=== PATIENT | female | born 1960 | race Caucasian/White ===

== ENCOUNTER 2018-08-31 19:23 | Inpatient (IN) | payer BC, MEDICAID ==
[~2018-08-31] VITALS: Ht 172.7 cm; Wt 126.4 kg
[~2018-08-31 19:23] MED LIST: ONDA4TAB12 PO
[2018-08-31 20:13] LABS: ALANINE AMINOTRANSFERASE 28 U/L (12-78); ALBUMIN 3.2 G/DL (3.4-5.0); ALBUMIN/GLOBULIN RATIO 0.7 (1.1-1.5); ALKALINE PHOSPHATASE 99 IU/L (46-116); ANION GAP 9 (8-16); ASPARTATE AMINO TRANSFERASE 24 U/L (10-37); BILIRUBIN,TOTAL 0.2 MG/DL (0.1-1.0); BLOOD UREA NITROGEN 25 MG/DL (7-18); BUN/CREATININE RATIO 16.8 (6.6-38.0); CALCIUM 9.1 MG/DL (8.5-10.1); CHLORIDE 105 MMOL/L (99-107); CREATININE 1.49 MG/DL (0.40-0.90); GLUCOSE 100 MG/DL (70-104); POTASSIUM 4.1 MMOL/L (3.5-5.1); SODIUM 141 MMOL/L (135-145); TOTAL CARBON DIOXIDE 27.2 MMOL/L (24-32); TOTAL PROTEIN 7.6 G/DL (6.4-8.2); eGFR 36 ML/MIN
[2018-08-31 20:15] LABS: BASOPHILS # (AUTO) 0.1 X10'3 (0-0.2); BASOPHILS % (AUTO) 0.6 % (0-1); EOSINOPHILS # (AUTO) 0.4 X10'3 (0-0.9); EOSINOPHILS % (AUTO) 3.3 % (0-6); LYMPHOCYTES # (AUTO) 2.3 X10'3 (1.1-4.8); LYMPHOCYTES % (AUTO) 19.8 % (21-51); MONOCYTES # (AUTO) 0.8 X10'3 (0-0.9); MONOCYTES % (AUTO) 6.7 % (2-12); NEUTROPHILS % (AUTO) 69.6 % (42-75)
[2018-08-31 20:19] LABS: MAGNESIUM 1.9 MG/DL (1.5-2.4)
[2018-08-31] MEDS ORDERED: nitroGLYCERIN 0.4mg SUBLingual tab SL PRN (20:25)
--- NOTE | 2018-08-31 20:29 | NUR ---
ASSISTING RN WITH PT CARE, PT C/O MIDSTERNAL CHEST "PRESSURE" 12/30 AND CHEST "SQUEEZING" 04/01, RADIATES TO LEFT SHOULDER, GAVE 1ST NITRO, DR CARPENTER SAID PT COULD HAVE SOMETHING TO DRINK, PT LENARD WATER WELL, NO N/V
--- NOTE | 2018-08-31 20:34 | NUR ---
PT HAS NO CHEST PAIN/PRESSURE/SQUEEZING AFTER ONE NITRO
[2018-08-31 20:43] LABS: HEMATOCRIT 45.6 % (35.0-45.0); HEMOGLOBIN 14.8 g/dl (12.0-16.0); MEAN CORPUSCULAR HEMOGLOBIN 26.9 PG (27.0-31.0); MEAN CORPUSCULAR VOLUME 82.9 FL (78-98); RED BLOOD COUNT 5.49 X10'6 (4.20-5.60)
[2018-08-31 20:44] LABS: MEAN CORPUSCULAR HGB CONC 32.4 % (33.0-36.5); MEAN PLATELET VOLUME 8.2 FL (7.4-10.4); PLATELET COUNT 339 X10'3 (140-440); RED CELL DISTRIBUTION WIDTH 14.5 % (11.5-14.5)
[2018-08-31] MEDS ORDERED: GABA300C PO (21:03)
[2018-08-31] MEDS ORDERED: PRAM0.253 PO (21:03)
[2018-08-31] MEDS ORDERED: NEFA200T PO (21:03)
[2018-08-31] MEDS ORDERED: OXCA300T4 PO (21:03)
[2018-08-31] MEDS ORDERED: TOPI200T PO (21:03)
[2018-08-31] MEDS ORDERED: BRIV100T PO (21:03)
[2018-08-31] MEDS ORDERED: FLUT100D2 INH (21:03)
[2018-08-31] MEDS ORDERED: LORA1TAB PO (21:03)
[2018-08-31] MEDS ORDERED: LEVO125T PO (21:03)
[2018-08-31] MEDS ORDERED: DULO-31 PO (21:03)
[2018-08-31] MEDS ORDERED: TIZA4TAB11 PO (21:03)
[2018-08-31] MEDS ORDERED: ondansetron/PF 4mg/2ml inj IV ONE (22:10)
[2018-08-31] MEDS ORDERED: mag hydrox/Alum hydrox/simeth 30ml oral suspension PO PRN (23:05)
[2018-08-31] MEDS ORDERED: tizanidine 4mg tablet PO PRN (23:05)
[2018-08-31] MEDS ORDERED: magnesium hydroxide 30ml (MOM) UD suspension PO PRN (23:05)
[2018-08-31] MEDS ORDERED: acetaminophen 325mg tablet PO PRN (23:05)
[2018-08-31] MEDS ORDERED: ondansetron/PF 4mg/2ml inj IV PRN (23:05)
[2018-08-31 23:45] LABS: D-DIMER 1.36 MG/L FEU (0-0.50)
[2018-09-01] VITALS (8 sets, daily range): BP systolic 98–130; BP diastolic 35–69
--- NOTE | 2018-09-01 03:00 | NUR ---
Patient arrived on floor via hospital bed from ED after receiving report from Brigido TOMPKINS. Patient placed on lost charge card clerk, vitals taken, and oriented to room. No complaint of chest pain at this time. Patients belongings accompanied, continuing to monitor.
--- NOTE | 2018-09-01 06:30 | NUR ---
Patient in room PCU 3028. I have received report from LEDA Gilbert and had the opportunity to ask questions and assume patient care.
--- NOTE | 2018-09-01 07:01 | NUR ---
Problems reprioritized. Patient report given, questions answered & plan of care reviewed with Jose Luis TOMPKINS.
[2018-09-01 07:28] LABS: BASOPHILS # (AUTO) 0.1 X10'3 (0-0.2); BASOPHILS % (AUTO) 0.6 % (0-1); EOSINOPHILS # (AUTO) 0.4 X10'3 (0-0.9); EOSINOPHILS % (AUTO) 4.3 % (0-6); HEMATOCRIT 40.1 % (35.0-45.0); HEMOGLOBIN 12.8 g/dl (12.0-16.0); LYMPHOCYTES % (AUTO) 22.6 % (21-51); MEAN CORPUSCULAR HEMOGLOBIN 26.4 PG (27.0-31.0); MEAN CORPUSCULAR VOLUME 82.4 FL (78-98); MEAN PLATELET VOLUME 8.7 FL (7.4-10.4); MONOCYTES # (AUTO) 0.7 X10'3 (0-0.9); NEUTROPHILS # (AUTO) 5.8 X10'3 (1.8-7.7); NEUTROPHILS % (AUTO) 64.5 % (42-75); PLATELET COUNT 297 X10'3 (140-440); RED BLOOD COUNT 4.87 X10'6 (4.20-5.60); RED CELL DISTRIBUTION WIDTH 14.6 % (11.5-14.5)
[2018-09-01 07:52] LABS: ALANINE AMINOTRANSFERASE 25 U/L (12-78); ALBUMIN 2.7 G/DL (3.4-5.0); ALBUMIN/GLOBULIN RATIO 0.7 (1.1-1.5); ALKALINE PHOSPHATASE 89 IU/L (46-116); ANION GAP 10 (8-16); ASPARTATE AMINO TRANSFERASE 16 U/L (10-37); BILIRUBIN,TOTAL 0.2 MG/DL (0.1-1.0); BLOOD UREA NITROGEN 27 MG/DL (7-18); BUN/CREATININE RATIO 21.4 (6.6-38.0); CALCIUM 8.7 MG/DL (8.5-10.1); CHLORIDE 107 MMOL/L (99-107); CREATININE 1.26 MG/DL (0.40-0.90); GLUCOSE 99 MG/DL (70-104); POTASSIUM 4.2 MMOL/L (3.5-5.1); SODIUM 142 MMOL/L (135-145); TOTAL CARBON DIOXIDE 25.5 MMOL/L (24-32); TOTAL PROTEIN 6.7 G/DL (6.4-8.2); eGFR 44 ML/MIN
[2018-09-01] MEDS ORDERED: TYPE IN GENERIC & BRAND NAME OF PATIENT MED STRENGTH & FORM PO SCH (08:00)
[2018-09-01] MEDS: levoTHYROXINE 125mcg tablet PO SCH (08:41)
[2018-09-01] MEDS: topiramate 100mg tablet PO SCH ×2 (08:41→20:07)
[2018-09-01] MEDS: oxcarbazepine 150mg tablet PO SCH ×3 (08:42→20:07)
[2018-09-01] MEDS: duloxetine 30mg CAPSULE.DR PO SCH (08:42)
[2018-09-01] MEDS: heparin, porcine 5000 units/ml vial SQ SCH ×2 (08:42→20:06)
[2018-09-01] MEDS ORDERED: nitroGLYCERIN 0.4mg SUBLingual tab SL PRN (08:45)
[2018-09-01] MEDS ORDERED: metoprolol tartrate 1mg/ml inj IV PRN (08:45)
[2018-09-01] MEDS ORDERED: regadenoson 0.4mg/5ml syringe IV ONE (08:45)
[2018-09-01] MEDS ORDERED: aminophylline 250mg/10ml inj. IV PRN (08:45)
--- NOTE | 2018-09-01 08:45 | NUR ---
cannot give pts at home medications pt advised to bring them in, one is for pts staring seizures, pts bed rails padded and education given
[2018-09-01] MEDS: aspirin 81mg tablet.DR PO SCH (08:50)
[2018-09-01] MEDS: BUDESONIDE 0.25 MG/2 ML AMPUL.NEB IH SCH ×2 (09:00→19:36)
[2018-09-01] MEDS ORDERED: NEFAZODONE HCL PO SCH (12:00)
[2018-09-01 12:49] LABS: CHOL/HDL RATIO 2.4 (0.00-4.99); CHOLESTEROL 193 MG/DL (0-200); HDL CHOLESTEROL 79 MG/DL (35-60); LDL CHOLESTEROL 97 MG/DL (50-100); TRIGLYCERIDES 60 MG/DL (20-135)
--- NOTE | 2018-09-01 18:03 | NUR ---
Problems reprioritized. Patient report given, questions answered & plan of care reviewed with LEDA Chisholm.
--- NOTE | 2018-09-01 18:11 | NUR ---
Patient in room PCU 3028. I have received report from Jose Luis TOMPKINS and had the opportunity to ask questions and assume patient care.
[2018-09-01] MEDS: metoprolol tartrate 12.5mg (1/2 tablet) PO SCH (20:00)
[2018-09-01] MEDS: pramipexole 0.25mg tablet PO SCH (20:06)
[2018-09-01] MEDS: gabapentin 300mg capsule PO SCH (20:07)
--- NOTE | 2018-09-01 20:24 | NUR ---
pt complaints of CP of 6, 12 lead completed and verified with MD. VS: Temperature 97.9, HR 78, RR 20, O2 91%, BP 98/35. pt has complained of severe cough. Nitro not given due to BP being 98/35. Will continue to monitor.
[2018-09-02] VITALS (18 sets, daily range): BP systolic 87–137; BP diastolic 47–86
[2018-09-02] MEDS: LORazepam 2 mg/ml vial IV PRN ×3 (00:26→09:53)
--- NOTE | 2018-09-02 00:29 | NUR ---
pt went into petite mal seizure activity at 0018 and went into grand mal at 0022. assisted pt to bed attended by aid and extension service specialist in charge. No interruption of breathing. pt given IV ativan. seizure ended at 0030. pt foggy but able to stand after.
[2018-09-02 05:11] LABS: BASOPHILS % (AUTO) 0.6 % (0-1); EOSINOPHILS # (AUTO) 0.4 X10'3 (0-0.9); EOSINOPHILS % (AUTO) 4.8 % (0-6); HEMATOCRIT 41.3 % (35.0-45.0); LYMPHOCYTES # (AUTO) 1.8 X10'3 (1.1-4.8); MEAN CORPUSCULAR HGB CONC 31.6 % (33.0-36.5); MEAN CORPUSCULAR VOLUME 82.4 FL (78-98); MEAN PLATELET VOLUME 8.9 FL (7.4-10.4); MONOCYTES # (AUTO) 0.7 X10'3 (0-0.9); MONOCYTES % (AUTO) 8.8 % (2-12); NEUTROPHILS # (AUTO) 4.7 X10'3 (1.8-7.7); NEUTROPHILS % (AUTO) 61.8 % (42-75); PLATELET COUNT 286 X10'3 (140-440); RED CELL DISTRIBUTION WIDTH 14.9 % (11.5-14.5); WHITE BLOOD COUNT 7.6 X10'3 (4.5-11.0)
[2018-09-02 05:30] LABS: ALANINE AMINOTRANSFERASE 23 U/L (12-78); ALBUMIN 2.8 G/DL (3.4-5.0); ALBUMIN/GLOBULIN RATIO 0.7 (1.1-1.5); ALKALINE PHOSPHATASE 86 IU/L (46-116); ANION GAP 7 (8-16); ASPARTATE AMINO TRANSFERASE 17 U/L (10-37); BILIRUBIN,TOTAL 0.2 MG/DL (0.1-1.0); BLOOD UREA NITROGEN 22 MG/DL (7-18); BUN/CREATININE RATIO 21.4 (6.6-38.0); CALCIUM 8.8 MG/DL (8.5-10.1); CHLORIDE 107 MMOL/L (99-107); CREATININE 1.03 MG/DL (0.40-0.90); GLUCOSE 106 MG/DL (70-104); POTASSIUM 4.2 MMOL/L (3.5-5.1); SODIUM 141 MMOL/L (135-145); TOTAL CARBON DIOXIDE 26.9 MMOL/L (24-32); TOTAL PROTEIN 6.8 G/DL (6.4-8.2); eGFR 55 ML/MIN
--- NOTE | 2018-09-02 06:15 | NUR ---
Patient in room [facility] 3028. I have received report from Lissette TOMPKINS and had the opportunity to ask questions and assume patient care. Addendum: 09/02/18 at 0653 by Iza Sims RN CORRECTION: Patient in room [place] [id number]. I have received report from DELIA TOMPKINS and had the opportunity to ask questions and assume patient care.
--- NOTE | 2018-09-02 06:24 | NUR ---
Problems reprioritized. Patient report given, questions answered & plan of care reviewed with Heather TOMPKINS.
[2018-09-02] MEDS: BUDESONIDE 0.25 MG/2 ML AMPUL.NEB IH SCH ×2 (07:33→19:33)
[2018-09-02] MEDS ORDERED: LORazepam 2 mg/ml vial IM ONE (08:30)
[2018-09-02] MEDS ORDERED: aminophylline inj. 10 ML IV ONE (08:41)
[2018-09-02] MEDS ORDERED: regadenoson 0.4mg/5ml syringe IV ONE (08:41)
--- NOTE | 2018-09-02 09:45 | NUR ---
Received call to come [place] [facility]. Arrived at this time to see patient surrounded by team of staff. Rapid response had been called. Prepared to give oral antiepileptic meds and patient went into a seizure again, this nurse witnessed 2-3 seizures, Nepo called to come. RN at side had already administerd 2 mg. Sri ICU charge arrived at bedside and plans were discussed to send her to room 2007.
--- NOTE | 2018-09-02 10:00 | NUR ---
Transferred to ICU at this time.
--- NOTE | 2018-09-02 10:05 | NUR ---
RECEIVED PATIENT FROM [facility], VIA HOSPITAL BED. PATIENT WAS HAVING MULTIPLE SEIZURES IN [facility], REQUIRING ADMINISTRATION OF ATIVAN. AT PRESENT, PATIENT IS EASILY AROUSABLE AND APPROPRIATE. 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 PLACED ON MONITOR, DISPLAYING NSR WITH HR 84/MIN. O2 SATS 99-100%. CALL LIGHT IN REACH. REPORT RECEIVED FROM LEDA DAVILA.
--- NOTE | 2018-09-02 10:10 | NUR ---
Gave report to Hanna TOMPKINS. Made RN aware of multiple grand mal seizures while in nuc med exacerbated by nuclear medication for stress test. 3 mg Ativan administered by nurses during rapid response. Patient sitting up in bed making a phone call at this time. Assessment WNL.
--- NOTE | 2018-09-02 10:10 | NUR ---
approx. 0943 pt had 2nd seizure in nuc med lab, 1st seizure occurred during lexiscan approx 0907 which stopped at 0911 (petite seizure and then gran mal) see stress test noted for vitals. pt was then doing well recovering and drinking coffee, pt was then about to move and transfer to camera bed when nuc med tech saw her seizing then patients head slump downward, vt vinnie called for help, Karina TOMPKINS, Louisa TOMPKINS, Vamsi Chong and Jacque Resendez responded. Rapid Response initiated, a dose of Ativan 1mg was given, and then a 2nd dose was given for more seizure activity, aminophylline 75mg was given. Rapid Response team arrived, pt had seizures starting from approximately 0944 until 0953, patient was then transferred to cicu. approx.@0943 gran mal witnessed by kush birmingham, pt was then able to alert and spoke with kush birmingham and RN approx.@0947 petite mal witness by stress lab team approx.@0950 gran mal witnessed by Rapid Response team
[2018-09-02] MEDS: aspirin 81mg tablet.DR PO SCH (10:44)
[2018-09-02] MEDS: heparin, porcine 5000 units/ml vial SQ SCH ×2 (10:45→20:30)
[2018-09-02] MEDS: levoTHYROXINE 125mcg tablet PO SCH (10:46)
[2018-09-02] MEDS: oxcarbazepine 150mg tablet PO SCH ×3 (10:46→21:05)
[2018-09-02] MEDS: duloxetine 30mg CAPSULE.DR PO SCH (10:47)
[2018-09-02] MEDS: topiramate 100mg tablet PO SCH ×2 (10:49→20:28)
[2018-09-02] MEDS: metoprolol tartrate 12.5mg (1/2 tablet) PO SCH ×2 (10:51→20:34)
--- NOTE | 2018-09-02 11:20 | NUR ---
PATIENT STATES SHE WOULD LIKE TO SPEAK WITH HER MOTHER BUT IS UNABLE TO DIAL FROM THE PATIENT ROOM. TELEPHONE CALL TO MOTHER, LUCIUS, AND TRANSFERRED CALL TO ROOM, SO PATIENT CAN SPEAK WITH HER MOTHER. ALERT AND APPROPRIATE AT THIS TIME. PATIENT ATE BREAKFAST 100% AND RETAINED. NO SEIZURE ACTIVITY NOTED AT THIS TIME.
--- NOTE | 2018-09-02 11:35 | NUR ---
Received report from Hanna TOMPKINS in ICU, patient returning to room 3028 A. Has been seizure free since transferred to ICU. Waiting on patient arrival.
--- NOTE | 2018-09-02 12:37 | NUR ---
Called Daughter Reji spoke with her regarding bringing in med from home not supplied by hospital " States she will call her grandmother" for she is out of town right now Progress reprot given
--- NOTE | 2018-09-02 13:16 | NUR ---
AWAKE AND ALERT. ATE 100% OF LUNCH AND RETAINED. PREPARING FOR TRANSFER BACK TO PCU. PORTABLE TELE UNIT APPLIED AND FN WELL.
--- NOTE | 2018-09-02 13:38 | NUR ---
Patient arrived to 3028A from ICU, will cont. to monitor. Dr. Chandler at bedside, he's going to order some medication for her cough.
--- NOTE | 2018-09-02 18:44 | NUR ---
Problems reprioritized. Patient report given, questions answered & plan of care reviewed with Autumn TOMPKINS.
[2018-09-02] MEDS ORDERED: ketorolac trometh. 30mg/ml inj. IM PRN (18:45)
[2018-09-02] MEDS ORDERED: azithromycin 250mg tablet PO ONE (18:55)
--- NOTE | 2018-09-02 18:59 | NUR ---
Patient in room PCU 3028. I have received report from Iza TOMPKINS and had the opportunity to ask questions and assume patient care.
[2018-09-02] MEDS: pramipexole 0.25mg tablet PO SCH (20:28)
[2018-09-02] MEDS: gabapentin 300mg capsule PO SCH (20:29)
[2018-09-02] MEDS: CefTRIAXone/D5W-Rocephin 1gm 50 ML IV SCH (20:31)
[2018-09-02] MEDS ORDERED: oxcarbazepine 150mg tablet PO SCH (21:00)
[2018-09-03 02:00] VITALS: BP 139/66
[2018-09-03 06:30] VITALS: BP 141/70
[2018-09-03] MEDS: LORazepam 2 mg/ml vial IV PRN ×4 (06:34→20:57)
--- NOTE | 2018-09-03 06:47 | NUR ---
Problems reprioritized. Patient report given, questions answered & plan of care reviewed with Khadijah TOMPKINS.
--- NOTE | 2018-09-03 07:03 | NUR ---
Patient in room PCU 3028. I have received report from Va TOMPKINS. and had the opportunity to ask questions and assume patient care. During report, the aid came up and stated the patient was having a seizure when they got her up to the restroom, we went in there and she was just laying there, barely shaking, gave ativan per md orders, patient soon was able to talk normally again, and move herself up in bed. MD is aware of constant seizures, will continue to monitor patient, told the patient she is only to get up with assist, as these happen when she is getting up. Patient states she understands, bed alarm on as well.
--- NOTE | 2018-09-03 08:00 | NUR ---
Went to check on patients pain level as she was previously a 03/01, patient is sleeping, will check on her later and ask if her pain is better, she was given ativan with her seizures, vitals stable.
[2018-09-03 08:31] LABS: BASOPHILS % (AUTO) 0.5 % (0-1); EOSINOPHILS # (AUTO) 0.4 X10'3 (0-0.9); EOSINOPHILS % (AUTO) 4.5 % (0-6); HEMOGLOBIN 14.1 g/dl (12.0-16.0); LYMPHOCYTES # (AUTO) 1.8 X10'3 (1.1-4.8); LYMPHOCYTES % (AUTO) 21.2 % (21-51); MEAN CORPUSCULAR HGB CONC 31.4 % (33.0-36.5); MEAN CORPUSCULAR VOLUME 82.7 FL (78-98); MEAN PLATELET VOLUME 8.8 FL (7.4-10.4); MONOCYTES # (AUTO) 0.5 X10'3 (0-0.9); MONOCYTES % (AUTO) 5.9 % (2-12); NEUTROPHILS # (AUTO) 5.6 X10'3 (1.8-7.7); NEUTROPHILS % (AUTO) 67.9 % (42-75); PLATELET COUNT 294 X10'3 (140-440); RED BLOOD COUNT 5.44 X10'6 (4.20-5.60); RED CELL DISTRIBUTION WIDTH 14.5 % (11.5-14.5); WHITE BLOOD COUNT 8.3 X10'3 (4.5-11.0)
[2018-09-03 08:47] LABS: ALANINE AMINOTRANSFERASE 24 U/L (12-78); ALBUMIN 3.1 G/DL (3.4-5.0); ALBUMIN/GLOBULIN RATIO 0.7 (1.1-1.5); ALKALINE PHOSPHATASE 98 IU/L (46-116); ANION GAP 9 (8-16); ASPARTATE AMINO TRANSFERASE 19 U/L (10-37); BILIRUBIN,TOTAL 0.2 MG/DL (0.1-1.0); BLOOD UREA NITROGEN 21 MG/DL (7-18); BUN/CREATININE RATIO 18.6 (6.6-38.0); CALCIUM 9.1 MG/DL (8.5-10.1); CHLORIDE 102 MMOL/L (99-107); CREATININE 1.13 MG/DL (0.40-0.90); GLUCOSE 126 MG/DL (70-104); POTASSIUM 4.1 MMOL/L (3.5-5.1); SODIUM 137 MMOL/L (135-145); TOTAL CARBON DIOXIDE 25.7 MMOL/L (24-32); TOTAL PROTEIN 7.7 G/DL (6.4-8.2); eGFR 50 ML/MIN
[2018-09-03] MEDS: BUDESONIDE 0.25 MG/2 ML AMPUL.NEB IH SCH ×2 (09:03→20:45)
[2018-09-03] MEDS: CefTRIAXone/D5W-Rocephin 1gm 50 ML IV SCH (09:22)
[2018-09-03] MEDS: heparin, porcine 5000 units/ml vial SQ SCH ×2 (09:25→20:00)
[2018-09-03] MEDS: oxcarbazepine 150mg tablet PO SCH ×5 (09:26→21:03)
[2018-09-03] MEDS: levoTHYROXINE 125mcg tablet PO SCH (09:26)
[2018-09-03] MEDS: aspirin 81mg tablet.DR PO SCH (09:26)
[2018-09-03] MEDS: topiramate 100mg tablet PO SCH ×2 (09:27→20:58)
[2018-09-03] MEDS: azithromycin 250mg tablet PO SCH (09:27)
[2018-09-03] MEDS: metoprolol tartrate 12.5mg (1/2 tablet) PO SCH ×2 (09:28→21:00)
[2018-09-03] MEDS: duloxetine 30mg CAPSULE.DR PO SCH (09:29)
--- NOTE | 2018-09-03 09:48 | NUR ---
Pt had another seizure after medications were administered. Pt rolled to side, seizure pads already in place, 2mg ativan given x2 doses, seizure resolved after 12 mins, vital signs stable at: BP 117/73, HR 85, O2 sat 91%, RR, 14.
[2018-09-03 11:00] VITALS: BP 147/85
--- NOTE | 2018-09-03 11:20 | NUR ---
Talked to Dr. Chandler about patients seizures, he stated to add 150mg trileptal tid. verbal order verified. Told him pharmacist thought it was a duplicate order this am and stopped the 150 order. will administer 450mg per md orders starting at 1300.
--- NOTE | 2018-09-03 12:46 | NUR ---
Got a message that patients mom had called and wanted a call back, the patient stated her mom has alzheimers and doesnt remember anything anyways, so that she would update her mother.
--- NOTE | 2018-09-03 14:40 | NUR ---
Problems reprioritized. Patient report given, questions answered & plan of care reviewed with Mayra TOMPKINS.
[2018-09-03 15:00] VITALS: BP 118/72
--- NOTE | 2018-09-03 15:51 | NUR ---
Paged Dr. Chandler PAGER ID: [phone] MESSAGE: Re: Pt. Saab in rm [id number], she confirmed that she does take serzone at home.
--- NOTE | 2018-09-03 16:48 | NUR ---
Pt was taken down for CT, when she returned at 1640 she was still having a seizure. Siezure resolved after Pt was transferred back to bed and is now resting in bed.
--- NOTE | 2018-09-03 18:15 | NUR ---
Patient in room PCU 3028A. I have received report from Shirley TOMPKINS and had the opportunity to ask questions and assume patient care.
[2018-09-03 19:00] VITALS: BP 130/83
[2018-09-03] MEDS: pramipexole 0.25mg tablet PO SCH (20:59)
[2018-09-03] MEDS: gabapentin 300mg capsule PO SCH (20:59)
--- NOTE | 2018-09-03 21:00 | NUR ---
Patient observed having apparent absence seizure activity, ativan given 2mg IV at this time, activity lasted aprox 4 min. Mildly confused post seizure, AOx4 within minutes, very lethargic and tired.
[2018-09-03 23:00] VITALS: BP 126/64
[2018-09-04 03:00] VITALS: BP 118/68
[2018-09-04] MEDS: LORazepam 2 mg/ml vial IV PRN ×2 (04:44→16:12)
--- NOTE | 2018-09-04 04:55 | NUR ---
Patient observed having apparent absence seizure activity, ativan given 2mg IV at this time, activity lasted aprox 5min. Mildly confused post seizure, AOx4 within minutes, very lethargic and tired.
[2018-09-04 06:00] VITALS: BP 131/72
--- NOTE | 2018-09-04 06:25 | NUR ---
Problems reprioritized. Patient report given, questions answered & plan of care reviewed with Phill TOMPKINS.
--- NOTE | 2018-09-04 06:35 | NUR ---
Patient in room PCU 3028. I have received report from Matt TOMPKINS and had the opportunity to ask questions and assume patient care. Will continue to monitor.
[2018-09-04 07:04] LABS: BASOPHILS # (AUTO) 0.1 X10'3 (0-0.2); BASOPHILS % (AUTO) 0.8 % (0-1); EOSINOPHILS # (AUTO) 0.5 X10'3 (0-0.9); EOSINOPHILS % (AUTO) 5.2 % (0-6); HEMATOCRIT 45.2 % (35.0-45.0); LYMPHOCYTES # (AUTO) 1.9 X10'3 (1.1-4.8); LYMPHOCYTES % (AUTO) 21.3 % (21-51); MEAN CORPUSCULAR HEMOGLOBIN 25.8 PG (27.0-31.0); MEAN CORPUSCULAR VOLUME 83.1 FL (78-98); MEAN PLATELET VOLUME 9.1 FL (7.4-10.4); MONOCYTES # (AUTO) 0.7 X10'3 (0-0.9); MONOCYTES % (AUTO) 8.3 % (2-12); NEUTROPHILS # (AUTO) 5.8 X10'3 (1.8-7.7); NEUTROPHILS % (AUTO) 64.4 % (42-75); PLATELET COUNT 282 X10'3 (140-440); RED BLOOD COUNT 5.44 X10'6 (4.20-5.60); RED CELL DISTRIBUTION WIDTH 14.7 % (11.5-14.5)
[2018-09-04 07:16] LABS: ALANINE AMINOTRANSFERASE 22 U/L (12-78); ALBUMIN/GLOBULIN RATIO 0.7 (1.1-1.5); ALKALINE PHOSPHATASE 98 IU/L (46-116); ANION GAP 10 (8-16); ASPARTATE AMINO TRANSFERASE 15 U/L (10-37); BILIRUBIN,TOTAL 0.2 MG/DL (0.1-1.0); BLOOD UREA NITROGEN 24 MG/DL (7-18); BUN/CREATININE RATIO 23.5 (6.6-38.0); CALCIUM 9.3 MG/DL (8.5-10.1); CHLORIDE 102 MMOL/L (99-107); CREATININE 1.02 MG/DL (0.40-0.90); GLUCOSE 98 MG/DL (70-104); POTASSIUM 3.9 MMOL/L (3.5-5.1); SODIUM 139 MMOL/L (135-145); TOTAL CARBON DIOXIDE 26.7 MMOL/L (24-32); TOTAL PROTEIN 7.6 G/DL (6.4-8.2); eGFR 56 ML/MIN
[2018-09-04] MEDS: CefTRIAXone/D5W-Rocephin 1gm 50 ML IV SCH (08:10)
[2018-09-04] MEDS: oxcarbazepine 150mg tablet PO SCH ×4 (08:11→21:25)
[2018-09-04] MEDS: duloxetine 30mg CAPSULE.DR PO SCH (08:11)
[2018-09-04] MEDS: aspirin 81mg tablet.DR PO SCH (08:11)
[2018-09-04] MEDS: heparin, porcine 5000 units/ml vial SQ SCH ×2 (08:11→20:06)
[2018-09-04] MEDS: topiramate 100mg tablet PO SCH ×2 (08:11→20:07)
[2018-09-04] MEDS: azithromycin 250mg tablet PO SCH (08:12)
[2018-09-04] MEDS: metoprolol tartrate 12.5mg (1/2 tablet) PO SCH ×2 (08:12→20:07)
[2018-09-04] MEDS: levoTHYROXINE 125mcg tablet PO SCH (08:12)
[2018-09-04] MEDS: BUDESONIDE 0.25 MG/2 ML AMPUL.NEB IH SCH ×2 (10:38→21:33)
[2018-09-04 11:00] VITALS: BP 144/79
[2018-09-04 15:00] VITALS: BP 130/68
--- NOTE | 2018-09-04 16:16 | NUR ---
Pt had seizure and was given 1 dose of prn Ativan, seizure resolved. Pt in bed and resting at this time.
[2018-09-04 18:00] VITALS: BP 134/78
[2018-09-04] MEDS: pramipexole 0.25mg tablet PO SCH (21:24)
[2018-09-04] MEDS: gabapentin 300mg capsule PO SCH (21:25)
[2018-09-04 22:00] VITALS: BP 134/78
[2018-09-05 02:00] VITALS: BP 126/83
[2018-09-05 05:06] LABS: BASOPHILS # (AUTO) 0.1 X10'3 (0-0.2); BASOPHILS % (AUTO) 0.6 % (0-1); EOSINOPHILS # (AUTO) 0.3 X10'3 (0-0.9); EOSINOPHILS % (AUTO) 3.8 % (0-6); HEMATOCRIT 45.8 % (35.0-45.0); HEMOGLOBIN 14.3 g/dl (12.0-16.0); LYMPHOCYTES # (AUTO) 2.1 X10'3 (1.1-4.8); LYMPHOCYTES % (AUTO) 22.8 % (21-51); MEAN CORPUSCULAR HEMOGLOBIN 25.6 PG (27.0-31.0); MEAN CORPUSCULAR HGB CONC 31.2 % (33.0-36.5); MEAN PLATELET VOLUME 8.8 FL (7.4-10.4); MONOCYTES # (AUTO) 0.7 X10'3 (0-0.9); MONOCYTES % (AUTO) 7.1 % (2-12); NEUTROPHILS % (AUTO) 65.7 % (42-75); PLATELET COUNT 284 X10'3 (140-440); RED BLOOD COUNT 5.59 X10'6 (4.20-5.60); RED CELL DISTRIBUTION WIDTH 14.6 % (11.5-14.5); WHITE BLOOD COUNT 9.2 X10'3 (4.5-11.0)
[2018-09-05 05:10] LABS: ALANINE AMINOTRANSFERASE 27 U/L (12-78); ALBUMIN/GLOBULIN RATIO 0.7 (1.1-1.5); ALKALINE PHOSPHATASE 104 IU/L (46-116); ANION GAP 10 (8-16); ASPARTATE AMINO TRANSFERASE 19 U/L (10-37); BILIRUBIN,TOTAL 0.2 MG/DL (0.1-1.0); BLOOD UREA NITROGEN 21 MG/DL (7-18); BUN/CREATININE RATIO 21.4 (6.6-38.0); CALCIUM 8.9 MG/DL (8.5-10.1); CHLORIDE 101 MMOL/L (99-107); CREATININE 0.98 MG/DL (0.40-0.90); GLUCOSE 95 MG/DL (70-104); POTASSIUM 3.8 MMOL/L (3.5-5.1); SODIUM 138 MMOL/L (135-145); TOTAL CARBON DIOXIDE 26.9 MMOL/L (24-32); TOTAL PROTEIN 7.6 G/DL (6.4-8.2); eGFR 58 ML/MIN
[2018-09-05 06:00] VITALS: BP 114/53
[2018-09-05] MEDS: BUDESONIDE 0.25 MG/2 ML AMPUL.NEB IH SCH ×2 (08:25→19:36)
[2018-09-05] MEDS: heparin, porcine 5000 units/ml vial SQ SCH ×2 (08:57→20:12)
[2018-09-05] MEDS: CefTRIAXone/D5W-Rocephin 1gm 50 ML IV SCH (08:57)
[2018-09-05] MEDS: oxcarbazepine 150mg tablet PO SCH ×3 (08:58→20:10)
[2018-09-05] MEDS: duloxetine 30mg CAPSULE.DR PO SCH (08:58)
[2018-09-05] MEDS: topiramate 100mg tablet PO SCH ×2 (08:58→20:11)
[2018-09-05] MEDS: azithromycin 250mg tablet PO SCH (08:58)
[2018-09-05] MEDS: aspirin 81mg tablet.DR PO SCH (08:59)
[2018-09-05] MEDS: metoprolol tartrate 12.5mg (1/2 tablet) PO SCH ×2 (08:59→20:00)
[2018-09-05] MEDS: levoTHYROXINE 125mcg tablet PO SCH (08:59)
[2018-09-05 11:00] VITALS: BP 112/62
--- NOTE | 2018-09-05 13:03 | NUR ---
Initial: Pt admit w/ chest pain; currently suffering from persistent seizures w/ hx per note. PO 100% meals meeting needs. First BM today since 08/30 per RN. Will continue to monitor. Rec: 1. continue heart healthy diet 2. wt per rx Addendum: 09/05/18 at [address] Amended: Links added.
[2018-09-05 15:32] VITALS: BP 92/49
[2018-09-05 18:00] VITALS: BP 102/54
[2018-09-05] MEDS: gabapentin 300mg capsule PO SCH (20:11)
[2018-09-05] MEDS: lactobacillus rhamnosus 10,000 MMU CELLS/CAPSULE PO SCH (20:11)
[2018-09-05] MEDS: pramipexole 0.25mg tablet PO SCH (20:12)
[2018-09-05 22:00] VITALS: BP 100/50
[2018-09-06 02:00] VITALS: BP 131/77
[2018-09-06 06:00] VITALS: BP 111/54
--- NOTE | 2018-09-06 06:24 | NUR ---
Report given to Mari TOMPKINS.
[2018-09-06] MEDS: BUDESONIDE 0.25 MG/2 ML AMPUL.NEB IH SCH ×2 (07:17→19:52)
[2018-09-06] MEDS: CefTRIAXone/D5W-Rocephin 1gm 50 ML IV SCH (08:03)
[2018-09-06] MEDS: azithromycin 250mg tablet PO SCH (08:03)
[2018-09-06] MEDS: metoprolol tartrate 12.5mg (1/2 tablet) PO SCH ×2 (08:03→20:00)
[2018-09-06] MEDS: aspirin 81mg tablet.DR PO SCH (08:03)
[2018-09-06] MEDS: heparin, porcine 5000 units/ml vial SQ SCH ×2 (08:04→22:43)
[2018-09-06] MEDS: duloxetine 30mg CAPSULE.DR PO SCH (08:04)
[2018-09-06] MEDS: lactobacillus rhamnosus 10,000 MMU CELLS/CAPSULE PO SCH ×2 (08:04→22:41)
[2018-09-06] MEDS: levoTHYROXINE 125mcg tablet PO SCH (08:04)
[2018-09-06] MEDS: oxcarbazepine 150mg tablet PO SCH ×2 (08:04→22:42)
[2018-09-06] MEDS: topiramate 100mg tablet PO SCH ×2 (08:04→22:41)
[2018-09-06 11:00] VITALS: BP 109/59
[2018-09-06] MEDS ORDERED: ketorolac trometh. 30mg/ml inj. IV PRN (11:10)
--- NOTE | 2018-09-06 14:12 | NUR ---
Patient says Toradol does not help with pain Paged Dr. Kirkpatrick- "Re; Patricia Saab in [id number]. patient says Toradol does not help her pain at all. is there anything else she can have ordered? thank you, Mari [facility] [phone]"
--- NOTE | 2018-09-06 15:00 | NUR ---
Patient in room PCU 3028. I have received report from Mckenna Capone RN and had the opportunity to ask questions and assume patient care.
[2018-09-06] MEDS: HYDROcodone/acetaminophen 5mg/325mg tablet PO PRN ×2 (15:49→20:06)
[2018-09-06 16:00] VITALS: BP 127/64
[2018-09-06 18:00] VITALS: BP 90/46
[2018-09-06 22:00] VITALS: BP 96/48
[2018-09-06] MEDS: pramipexole 0.25mg tablet PO SCH (22:41)
[2018-09-06] MEDS: gabapentin 300mg capsule PO SCH (22:41)
[2018-09-07] VITALS (7 sets, daily range): BP systolic 102–138; BP diastolic 53–102
[2018-09-07] MEDS: HYDROcodone/acetaminophen 5mg/325mg tablet PO PRN ×4 (01:47→20:14)
--- NOTE | 2018-09-07 06:32 | NUR ---
Problems reprioritized. Patient report given, questions answered & plan of care reviewed with Eleanor TOMPKINS.
[2018-09-07] MEDS: levoTHYROXINE 125mcg tablet PO SCH (08:00)
[2018-09-07] MEDS: metoprolol tartrate 12.5mg (1/2 tablet) PO SCH ×2 (08:00→20:13)
[2018-09-07] MEDS: BUDESONIDE 0.25 MG/2 ML AMPUL.NEB IH SCH ×2 (08:31→20:36)
[2018-09-07] MEDS: oxcarbazepine 150mg tablet PO SCH ×3 (09:00→20:14)
[2018-09-07] MEDS: topiramate 100mg tablet PO SCH ×2 (09:01→20:13)
[2018-09-07] MEDS: azithromycin 250mg tablet PO SCH (09:02)
[2018-09-07] MEDS: lactobacillus rhamnosus 10,000 MMU CELLS/CAPSULE PO SCH ×2 (09:02→20:13)
[2018-09-07] MEDS: aspirin 81mg tablet.DR PO SCH (09:02)
[2018-09-07] MEDS: duloxetine 30mg CAPSULE.DR PO SCH (09:02)
[2018-09-07] MEDS: heparin, porcine 5000 units/ml vial SQ SCH ×2 (09:04→20:14)
[2018-09-07] MEDS: CefTRIAXone/D5W-Rocephin 1gm 50 ML IV SCH (09:04)
[2018-09-07] MEDS ORDERED: LORazepam 2 mg/ml vial IV PRN (11:30)
--- NOTE | 2018-09-07 18:30 | NUR ---
Patient in room PCU 3028. I have received report from Eleanor TOMPKINS and had the opportunity to ask questions and assume patient care.
--- NOTE | 2018-09-07 19:00 | NUR ---
Problems reprioritized. Patient report given, questions answered & plan of care reviewed with Mela TOMPKINS. Will be transferring pt to O/N 420B
--- NOTE | 2018-09-07 19:25 | NUR ---
Transferred pt to 4020B. No signs of distress. IV intact. Personal belongings with pt.
--- NOTE | 2018-09-07 19:30 | NUR ---
Patient arrived to the floor via her bed at approximately 1915 and ambulated with one person assistance and FWW to ortho bed. Patient educated on staff, POC, use of bed and call light. Seizure precautions in place, bed alarm on for safety. Patient questions and concerns addressed at this time. Will continue to monitor.
[2018-09-07] MEDS: gabapentin 300mg capsule PO SCH (20:13)
[2018-09-07] MEDS: pramipexole 0.25mg tablet PO SCH (20:13)
[2018-09-08] VITALS (7 sets, daily range): BP systolic 89–145; BP diastolic 48–91
[2018-09-08] MEDS: LORazepam 2 mg/ml vial IV PRN ×5 (03:36→20:25)
[2018-09-08] MEDS ORDERED: LORazepam 2 mg/ml vial ONE (03:44)
[2018-09-08] MEDS ORDERED: LORazepam 2 mg/ml vial IV ONE (03:45)
--- NOTE | 2018-09-08 04:03 | NUR ---
At approximately 0334 responded to patient bed alarm with patient attempting to stand up at side of bed. Upon assessment of patient she was noted to be staring off in space and drooling. Alerted to fellow nursing staff for help as patient was having a seizure. MD Hidalgo was on the floor, he was updated on patient condition, 1mg Ativan was administered as ordered. Patient was assisted back to bed safely. Patient was then assessed to be having a tonic clonic seizure starting at 034. New order received from MD Hidalgo to give an additional dose of 2 mg IV Ativan once for seizure. Medication was administered as ordered. Patient was observed to relax at 0349. MD Hidalgo was present at the bedside. VSS WNL except for o2 sat 89% on RA. Patient placed on 2L O2 via NC with O2 sat increasing to 93%. Patient is resting at this time with seizure precautions in place. Bed alarm is on for safety. Will continue to monitor. Addendum: 09/08/18 at 0410 by Rafia Schulte RN Amended: Links added.
--- NOTE | 2018-09-08 06:49 | NUR ---
Report given to Mary TOMPKINS.
[2018-09-08] MEDS: metoprolol tartrate 12.5mg (1/2 tablet) PO SCH ×2 (08:00→21:07)
[2018-09-08] MEDS: BUDESONIDE 0.25 MG/2 ML AMPUL.NEB IH SCH ×2 (08:42→21:18)
[2018-09-08] MEDS: CefTRIAXone/D5W-Rocephin 1gm 50 ML IV SCH (09:21)
[2018-09-08] MEDS: heparin, porcine 5000 units/ml vial SQ SCH ×2 (09:22→21:09)
[2018-09-08] MEDS: lactobacillus rhamnosus 10,000 MMU CELLS/CAPSULE PO SCH ×2 (09:23→21:07)
[2018-09-08] MEDS: oxcarbazepine 150mg tablet PO SCH ×3 (09:23→21:09)
[2018-09-08] MEDS: azithromycin 250mg tablet PO SCH (09:23)
[2018-09-08] MEDS: levoTHYROXINE 125mcg tablet PO SCH (09:24)
[2018-09-08] MEDS: topiramate 100mg tablet PO SCH ×2 (09:24→21:08)
[2018-09-08] MEDS: aspirin 81mg tablet.DR PO SCH (09:24)
[2018-09-08] MEDS: duloxetine 30mg CAPSULE.DR PO SCH (09:31)
--- NOTE | 2018-09-08 11:33 | NUR ---
I came into the room and the pt is sitting at the bedside with the tech, pt wanting to get out of bed to urinate but I can see her eyes are nearly closed and she is foaming at the mouth. We layed her back into the bed and set her up high fowlers and provided oral suction. She was not responding. She then went into a full tonic clonic seizure for 3 min off and on. BP 85/51 p 84 spo2 down to 89-90, applied 3 l nc and 02 now 95. Gave ativan 1 mg. Pt now post ictal. Initially she was repeating every thing that was said around her/to her, but now she is responding appropriately. Will notify
--- NOTE | 2018-09-08 12:33 | NUR ---
PAGER ID: [phone] MESSAGE: Mary [id number] shirin Modi in [id number]- at 1130 she had a 3 min seizure absence then tonic clonic, gave Ativan 1 mg she is resting quietly now vss Addendum: 09/08/18 at 1425 by Melanie Linder RN received orders to increase pt home med (see emar)
--- NOTE | 2018-09-08 14:22 | NUR ---
pt had another seizure, I walked in and the pt was seizing and repeating an unintelligible phrase. sa02 maintained 96% on 2 l, father is at the bedside. I gave ativan 1 mg. Pt is able to respond and no longer seizing. Drowsy. Will continue to monitor
--- NOTE | 2018-09-08 17:27 | NUR ---
Pt had another seizure just now. Tech was in getting vitals and the pt appeared dazed, minimally responsive. She then went into tonic clonic seizure activity. She was given ativan 1 mg. Her VS remained stable with the exception of her O2 sat which dropped to 88%, placed her onto 3 L to bring her above 95%. She is now at 93% and is on 2 l, appropriately responsive but with slurred speech. Will continue to monitor
--- NOTE | 2018-09-08 18:29 | NUR ---
Patient in room ORTHO 4020. I have received report from Mary TOMPKINS and had the opportunity to ask questions and assume patient care.
--- NOTE | 2018-09-08 20:25 | NUR ---
Patient had a seizure for 3 minutes. Patient had tonic clonic with arm and leg movement. 2 liters of O2 was placed on patient due to O2 stat was at 90% room air during seizure. Ativan given as ordered. Patient came out of seizure saying she was ready to get up. Patient unaware that she had a seizure. Bed alarm is in place, bed is locked & low. Will continue to monitor.
[2018-09-08] MEDS: pramipexole 0.25mg tablet PO SCH (21:09)
[2018-09-08] MEDS: gabapentin 300mg capsule PO SCH (21:09)
[2018-09-08] MEDS: HYDROcodone/acetaminophen 5mg/325mg tablet PO PRN (21:49)
[2018-09-09] MEDS: HYDROcodone/acetaminophen 5mg/325mg tablet PO PRN ×3 (04:48→20:49)
[2018-09-09 06:00] VITALS: BP 122/84
--- NOTE | 2018-09-09 06:34 | NUR ---
Problems reprioritized. Patient report given, questions answered & plan of care reviewed with Mary TOMPKINS.
[2018-09-09] MEDS: duloxetine 30mg CAPSULE.DR PO SCH (07:34)
[2018-09-09] MEDS: lactobacillus rhamnosus 10,000 MMU CELLS/CAPSULE PO SCH ×2 (07:34→20:46)
[2018-09-09] MEDS: aspirin 81mg tablet.DR PO SCH (07:34)
[2018-09-09] MEDS: metoprolol tartrate 12.5mg (1/2 tablet) PO SCH ×2 (07:35→20:00)
[2018-09-09] MEDS: levoTHYROXINE 125mcg tablet PO SCH (07:35)
[2018-09-09] MEDS: topiramate 100mg tablet PO SCH ×2 (07:35→20:47)
[2018-09-09] MEDS: oxcarbazepine 150mg tablet PO SCH ×3 (07:35→20:49)
[2018-09-09] MEDS: heparin, porcine 5000 units/ml vial SQ SCH ×2 (07:36→20:48)
[2018-09-09] MEDS: LORazepam 0.5 MG tablet PO PRN (07:49)
[2018-09-09] MEDS: BUDESONIDE 0.25 MG/2 ML AMPUL.NEB IH SCH ×2 (08:39→20:28)
--- NOTE | 2018-09-09 09:53 | NUR ---
Reassessment: Pt continues with seizures per MD notes. Pt remains on heart healthy diet with fluctuating PO intake with average mostly 100% meeting nutrient needs. [facility] 09/07. Will continue to follow. Rec: 1. continue heart healthy diet 2. wt per rx Addendum: 09/09/18 at [address] Amended: Links added.
[2018-09-09 10:00] VITALS: BP 122/71
[2018-09-09 18:00] VITALS: BP 109/56
--- NOTE | 2018-09-09 18:23 | NUR ---
Patient in room ORTHO 4020. I have received report from Mary TOMPKINS and had the opportunity to ask questions and assume patient care.
[2018-09-09] MEDS: LORazepam 2 mg/ml vial IV PRN (18:32)
--- NOTE | 2018-09-09 18:57 | NUR ---
pt just had a 13 minute seizure episode. Went into the room due to tabs alarm. Pt sitting up in bed, vomiting repeatedly. She began staring/frowning at me then eyes closed and went limp. All VSS, placed on 2 L o2. Arms were then drawn up and toes pointed, rt foot/leg began twitching, L hand/fingers cramped up. Pt was non responsive most of the time. Ativan 1 mg was given about 8 minutes into the episode, shortly after the pt aroused to her name and said my name, and she sees me. She was very very drowsy after that and not twitching anymore but her L hand was still clenched and her rt foot was still pointed. She asked repeatedly "did that one count?" (she was very concerned about getting home to her pets earlier today) She finally relaxed and was sleeping at 643. I left her on oxygen for now, suction on at the bedside Addendum: 09/09/18 at 1906 by Melanie Linder RN Amended: Links added.
[2018-09-09 20:45] VITALS: BP 99/50
[2018-09-09] MEDS: pramipexole 0.25mg tablet PO SCH (20:48)
[2018-09-09] MEDS: gabapentin 300mg capsule PO SCH (20:49)
[2018-09-09 22:00] VITALS: BP 113/66
[2018-09-10 06:00] VITALS: BP 106/61
--- NOTE | 2018-09-10 06:31 | NUR ---
Problems reprioritized. Patient report given, questions answered & plan of care reviewed with Mary TOMPKINS.
[2018-09-10] MEDS: lactobacillus rhamnosus 10,000 MMU CELLS/CAPSULE PO SCH ×2 (07:58→20:59)
[2018-09-10] MEDS: duloxetine 30mg CAPSULE.DR PO SCH (07:58)
[2018-09-10] MEDS: aspirin 81mg tablet.DR PO SCH (07:58)
[2018-09-10] MEDS: heparin, porcine 5000 units/ml vial SQ SCH ×2 (07:59→21:21)
[2018-09-10] MEDS: oxcarbazepine 150mg tablet PO SCH ×3 (07:59→21:04)
[2018-09-10] MEDS: topiramate 100mg tablet PO SCH ×2 (07:59→21:06)
[2018-09-10] MEDS: HYDROcodone/acetaminophen 5mg/325mg tablet PO PRN ×3 (08:00→21:21)
[2018-09-10] MEDS: metoprolol tartrate 12.5mg (1/2 tablet) PO SCH ×2 (08:00→21:05)
[2018-09-10] MEDS: levoTHYROXINE 125mcg tablet PO SCH (08:00)
[2018-09-10] MEDS: BUDESONIDE 0.25 MG/2 ML AMPUL.NEB IH SCH ×2 (08:41→20:15)
[2018-09-10] MEDS: LORazepam 0.5 MG tablet PO PRN (09:58)
--- NOTE | 2018-09-10 09:59 | NUR ---
at approx 0940 i was called to the room, pt having seizure activity. It is abrupt. Pt was alert and talking to the aid and then she became confused looking and her hands were drawn up and clenched, then she became more and more tremorous, she was obtunded looking with slurred speech asking us to pls lower the bed, as we had her head up for asp precautions, then she went into a tonic clonic movement with clenched fists and pointed toes. This went up and down in activity for about 10 min, attempted to give ativan iv but iv was infiltrated so I placed 1 mg PO under her tongue. At that point she was able to follow directions such as lifting her tongue. She was insistant on laying flat. She is able to respond appropriately but is still quite drowsy/post ictal at this time. No awareness that she had a seizure. Will continue to monitor Addendum: 09/10/18 at 1009 by Melanie Linder RN Amended: Links added.
[2018-09-10 10:00] VITALS: BP 116/63
--- NOTE | 2018-09-10 10:21 | NUR ---
PAGER ID: [phone] MESSAGE: Yeni [phone] re Patricia Saab in [id number]- she had a seizure last night at shift change and again this a.m. just now. currently stable. Do we need labs for her? med levels?
[2018-09-10 18:00] VITALS: BP 119/64
[2018-09-10] MEDS: gabapentin 300mg capsule PO SCH (21:02)
[2018-09-10] MEDS: pramipexole 0.25mg tablet PO SCH (21:04)
[2018-09-10 22:00] VITALS: BP 105/62
[2018-09-10] MEDS: LORazepam 2 mg/ml vial IV PRN (23:10)
--- NOTE | 2018-09-11 00:39 | NUR ---
at approximately 2300 pt rang call ravindra to go to the bathroom. We got her up to walk to the restroom with a walker. While the pt was up on the toilet she appeared very sleepy. She walked a few steps but did not make it back to the bed, she stopped walking, staff provided a folding chair for her and sat her down. She became minimally responsive at that point and was held in place by Sarah TOMPKINS, pt's arms drawn up to chest and began to jerk rhythmically for about 5 minutes. when she was responsive again she was moved back to the bed and was repositioned for comfort. She was given 1 mg ativan toward the end of the seizure. bed alarm on. Explained that she would need to stay in bed for the rest of the night for her safety and use a bed holcomb, she states understanding. Addendum: 09/11/18 at 0046 by Melanie Linder RN Amended: Links added.
--- NOTE | 2018-09-11 01:35 | NUR ---
I heard the patient having loud coughing and wheezing from the pt's room and when I went into room she was staring off and then bringing her hands up to her chest. It appeared to be ending I applied oxygen and elevated her head of bed for prevention of aspiration. I left room and continued to monitor her from doorway and oxygen sat was good at 96% 2liters oxygen. She had been responding to my verbal stimuli then started having more generalized body movements and raspy breathing/ wheezy. I medicated patient with Ativan and almost immediately she came out of the seizure like activity; she was asking for milk than she looked at her table and asked for her lemonade to drink. She was asking for friend/relatives that were not there and was disorientated for a bit than she recognized staff members. She held glass without difficulty and swallowed fine. She recognized staff and asked appropriate questions regarding nurse's clothes.
[2018-09-11] MEDS: LORazepam 2 mg/ml vial IV PRN ×3 (01:47→23:42)
[2018-09-11 06:00] VITALS: BP 98/54
[2018-09-11] MEDS: metoprolol tartrate 12.5mg (1/2 tablet) PO SCH ×2 (07:11→19:17)
[2018-09-11] MEDS: aspirin 81mg tablet.DR PO SCH (07:14)
[2018-09-11] MEDS: duloxetine 30mg CAPSULE.DR PO SCH (07:14)
[2018-09-11] MEDS: lactobacillus rhamnosus 10,000 MMU CELLS/CAPSULE PO SCH ×2 (07:14→19:15)
[2018-09-11] MEDS: topiramate 100mg tablet PO SCH ×2 (07:14→19:15)
[2018-09-11] MEDS: levoTHYROXINE 125mcg tablet PO SCH (07:14)
[2018-09-11] MEDS: heparin, porcine 5000 units/ml vial SQ SCH ×2 (07:15→19:18)
[2018-09-11] MEDS: oxcarbazepine 150mg tablet PO SCH ×3 (07:15→19:15)
[2018-09-11] MEDS: BUDESONIDE 0.25 MG/2 ML AMPUL.NEB IH SCH ×2 (09:36→20:58)
[2018-09-11 10:00] VITALS: BP 127/73
--- NOTE | 2018-09-11 10:43 | NUR ---
patient had a 4 minute seizure. She initially sat up in bed and then laid back. Her hands were closed except for her 1-3 digits which were opening and closing repeatedly. As she was coming out of it she started to respond to vocal stimulation with groaning. Then as she came back to her normal state she realized she had urinated.
[2018-09-11] MEDS ORDERED: LORazepam 2 mg/ml vial IV PRN (13:00)
[2018-09-11 14:13] LABS: BASOPHILS % (AUTO) 0.4 % (0-1); EOSINOPHILS # (AUTO) 0.4 X10'3 (0-0.9); EOSINOPHILS % (AUTO) 3.6 % (0-6); HEMATOCRIT 42.2 % (35.0-45.0); HEMOGLOBIN 13.7 g/dl (12.0-16.0); LYMPHOCYTES % (AUTO) 18.8 % (21-51); MEAN CORPUSCULAR HEMOGLOBIN 26.7 PG (27.0-31.0); MEAN CORPUSCULAR HGB CONC 32.5 % (33.0-36.5); MEAN PLATELET VOLUME 8.7 FL (7.4-10.4); MONOCYTES # (AUTO) 0.5 X10'3 (0-0.9); MONOCYTES % (AUTO) 4.5 % (2-12); NEUTROPHILS # (AUTO) 7.9 X10'3 (1.8-7.7); NEUTROPHILS % (AUTO) 72.7 % (42-75); PLATELET COUNT 291 X10'3 (140-440); RED BLOOD COUNT 5.15 X10'6 (4.20-5.60); RED CELL DISTRIBUTION WIDTH 15.6 % (11.5-14.5); WHITE BLOOD COUNT 10.8 X10'3 (4.5-11.0)
[2018-09-11 14:31] LABS: ALANINE AMINOTRANSFERASE 27 U/L (12-78); ALBUMIN/GLOBULIN RATIO 0.6 (1.1-1.5); ALKALINE PHOSPHATASE 104 IU/L (46-116); ANION GAP 10 (8-16); ASPARTATE AMINO TRANSFERASE 19 U/L (10-37); BILIRUBIN,TOTAL 0.1 MG/DL (0.1-1.0); BLOOD UREA NITROGEN 18 MG/DL (7-18); BUN/CREATININE RATIO 18.6 (6.6-38.0); CALCIUM 8.9 MG/DL (8.5-10.1); CHLORIDE 98 MMOL/L (99-107); CREATININE 0.97 MG/DL (0.40-0.90); GLUCOSE 143 MG/DL (70-104); SODIUM 133 MMOL/L (135-145); TOTAL PROTEIN 7.7 G/DL (6.4-8.2); eGFR 59 ML/MIN
[2018-09-11 18:00] VITALS: BP 105/57
--- NOTE | 2018-09-11 18:17 | NUR ---
Problems reprioritized. Patient report given, questions answered & plan of care reviewed with Darshan TOMPKINS.
--- NOTE | 2018-09-11 18:57 | NUR ---
pt had seizure activity for approx 10minutes. started with cup falling on floor. came it to see patient's feet internally rotated and bouncing on bed,arms bent towards chest and fingers in "gun" formation off and on shaking towards chest, sometimes hitting chest. eyes when open were slowly tracking (without sight) back and forth. no verbal response from patient to name. coughing episode 2 minutes into seizure, able to clear airway. tonic clonic movements came and went alternating with other symptoms. towards end of seizure pt drooling, but kept airway intact. no incontinence. aroused after 9-10 minutes to name and able to carry on small conversation about "what is the plan for me". requested to see her previous MD Dr. Guevara. also stated her right leg "always is on fire and hurts".
[2018-09-11] MEDS: gabapentin 300mg capsule PO SCH (19:15)
[2018-09-11] MEDS: HYDROcodone/acetaminophen 5mg/325mg tablet PO PRN (19:15)
[2018-09-11] MEDS: pramipexole 0.25mg tablet PO SCH (19:18)
[2018-09-11 20:33] LABS: CLARITY,URINE CLEAR (Clear); COLOR,URINE YELLOW (Yellow); GLUCOSE, URINE NEGATIVE (Neg); KETONES,URINE NEGATIVE (Neg); LEUKOCYTE ESTERASE ,URINE NEGATIVE (Neg); NITRITES, URINE NEGATIVE (Neg); OCCULT BLOOD,URINE NEGATIVE (Neg); PH,URINE 7.5 (4.8-8.0); PROTEIN,URINE NEGATIVE (Neg); UROBILINOGEN,URINE 0.2 E.U/dL (0.2-1.0)
[2018-09-11 20:45] LABS: UA COLLECTION TYPE CLN CATCH MIDSTREAM
[2018-09-11 22:00] VITALS: BP 127/92
[2018-09-12] MEDS: HYDROcodone/acetaminophen 5mg/325mg tablet PO PRN (05:28)
[2018-09-12 06:00] VITALS: BP 109/53
[2018-09-12 06:22] LABS: ALANINE AMINOTRANSFERASE 25 U/L (12-78); ALBUMIN 2.8 G/DL (3.4-5.0); ALBUMIN/GLOBULIN RATIO 0.6 (1.1-1.5); ALKALINE PHOSPHATASE 98 IU/L (46-116); ANION GAP 11 (8-16); ASPARTATE AMINO TRANSFERASE 17 U/L (10-37); BILIRUBIN,TOTAL 0.2 MG/DL (0.1-1.0); BLOOD UREA NITROGEN 18 MG/DL (7-18); CALCIUM 8.9 MG/DL (8.5-10.1); CHLORIDE 98 MMOL/L (99-107); GLUCOSE 93 MG/DL (70-104); POTASSIUM 3.8 MMOL/L (3.5-5.1); SODIUM 135 MMOL/L (135-145); TOTAL CARBON DIOXIDE 26.5 MMOL/L (24-32); TOTAL PROTEIN 7.2 G/DL (6.4-8.2); eGFR 65 ML/MIN
--- NOTE | 2018-09-12 06:26 | NUR ---
pt reported to days. noted pt up to BSC with assist. tabs alarm on.
[2018-09-12] MEDS: metoprolol tartrate 12.5mg (1/2 tablet) PO SCH (07:38)
[2018-09-12] MEDS: aspirin 81mg tablet.DR PO SCH (07:42)
[2018-09-12] MEDS: lactobacillus rhamnosus 10,000 MMU CELLS/CAPSULE PO SCH (07:42)
[2018-09-12] MEDS: duloxetine 30mg CAPSULE.DR PO SCH (07:42)
[2018-09-12] MEDS: levoTHYROXINE 125mcg tablet PO SCH (07:42)
[2018-09-12] MEDS: topiramate 100mg tablet PO SCH (07:43)
[2018-09-12] MEDS: oxcarbazepine 150mg tablet PO SCH ×2 (07:43→12:28)
[2018-09-12] MEDS: heparin, porcine 5000 units/ml vial SQ SCH (07:43)
[2018-09-12] MEDS: BUDESONIDE 0.25 MG/2 ML AMPUL.NEB IH SCH (09:00)
--- NOTE | 2018-09-12 09:52 | NUR ---
Patient started off having a seizure by walking, repetitive motions. Misty and I were able to get the patient to sit in a chair where she preceded to have jerky eye motions and hand motions. this lasted for two minutes. Then she had full body shaking with slight foaming at the mouth. This lasted approximally 20 seconds twice. Ativan was administered via IV at this point. Patient then had a few more hand grasps and repetitively said burn for 2 more minutes. Seizure lasted 6 minutes.
[2018-09-12 10:00] VITALS: BP 133/75
[2018-09-12] MEDS: LORazepam 2 mg/ml vial IV PRN (10:13)
[2018-09-12] MEDS ORDERED: HEPA500017 SQ (15:18)
[2018-09-12] MEDS ORDERED: METO25TA6 PO (15:18)
[2018-09-12] MEDS ORDERED: ASPI-1071 PO (15:18)
[2018-09-12] MEDS ORDERED: HYDR-4383 PO (15:18)
[2018-09-12] MEDS ORDERED: LORA2VIA4 IV (15:18)
--- NOTE | 2018-09-12 16:55 | NUR ---
Report Called to Lissy at [facility].
--- NOTE | 2018-09-12 18:12 | NUR ---
Problems reprioritized. Patient report given, questions answered & plan of care reviewed with Rafia Gonzalez RN.
--- NOTE | 2018-09-12 19:44 | NUR ---
Patient care transferred to air flight. Patient left with all of her belongings with verbalization given of in agreement for transfer to [facility] via air. Report was given to Flight RN's. Call was made at their request to [facility] to inform them patient was on her way.
== END 2018-09-12 19:30 | disposition short-term general hospital (02) | DRG 101 ==
LOC: ER 19:23 → ED HOLD 23:01 → EDBEDREQ 09-01 02:36 → PCU 3S 09-01 03:11 → CICU 2S 09-02 10:02 → PCU 3S 09-02 13:28 → ORTHO 4S 09-07 19:24
PROVIDERS: ADMIT Internal Medicine; ATTEND Internal Medicine Critical Care Medicine
DX: G40.901 Epilepsy, unspecified, not intractable, with status epilepticus (principal); N17.9 Acute kidney failure, unspecified; Z68.41 Body mass index [BMI] 40.0-44.9, adult; G89.29 Other chronic pain; M54.9 Dorsalgia, unspecified; I20.9 Angina pectoris, unspecified; E03.9 Hypothyroidism, unspecified; R07.89 Other chest pain; J45.909 Unspecified asthma, uncomplicated; E66.01 Morbid (severe) obesity due to excess calories; Z90.721 Acquired absence of ovaries, unilateral; Z79.51 Long term (current) use of inhaled steroids; Z79.82 Long term (current) use of aspirin; Z79.890 Hormone replacement therapy; Z82.49 Family history of ischemic heart disease and other diseases of the circulatory system; Z90.710 Acquired absence of both cervix and uterus
CPT/HCPCS: 36415; 70450; 71045; 78451; 78582; 80053; 80061; 81003; 83735; 83880; 84443; 84484; 85025; 85379; 87070; 93005; 93017; 93306; 93970; 94640; 94760; 96374; 99285; A9500; A9539; A9540; G0378; J0280; J0696; J1644; J1885; J2060; J2405

== ENCOUNTER 2018-09-15 14:23 | Inpatient (IN) | payer BC, MEDICAID ==
[~2018-09-15] VITALS: Ht 172.7 cm; Wt 138.6 kg
[~2018-09-15 14:23] MED LIST changes: +ASPI-1071 PO; +BRIV100T PO; +DULO-31 PO; +FLUT100D2 INH; +GABA300C PO; +HEPA500017 SQ; +HYDR-4383 PO; +LEVO125T PO; +LORA2VIA4 IV; +METO25TA6 PO; -ONDA4TAB12 PO; +OXCA300T4 PO; +PRAM0.253 PO; +TIZA4TAB11 PO; +TOPI200T PO
[2018-09-15] MEDS ORDERED: temazepam 15mg capsule PO PRN (21:00)
--- NOTE | 2018-09-15 22:35 | NUR ---
Patient received from transport via gurney. Patient able to move into bed independently. Patient vital signs were taken. Bed is locked and low, call light is within reach. Food was given to the patient. Bed alarm placed.
[2018-09-15 22:40] VITALS: BP 131/71
--- NOTE | 2018-09-15 23:00 | NUR ---
At 2150 I received report from Dalton TOMPKINS from [facility]. I was told she will be arriving to our facility around 22:30. I have given verbal report to Michelle TOMPKINS the report that I was given by the ER nurse from [place].
[2018-09-15] MEDS ORDERED: acetaminophen 325mg tablet PO PRN ×2 (23:15)
[2018-09-15] MEDS ORDERED: mag hydrox/Alum hydrox/simeth 30ml oral suspension PO PRN (23:15)
[2018-09-15] MEDS ORDERED: magnesium hydroxide 30ml (MOM) UD suspension PO PRN (23:15)
[2018-09-15] MEDS ORDERED: ondansetron/PF 4mg/2ml inj IV PRN (23:15)
[2018-09-15] MEDS ORDERED: ONDA4SOL2 IV (23:17)
[2018-09-15] MEDS ORDERED: LIDO700A32 TOP (23:24)
[2018-09-15] MEDS ORDERED: ACET-2119 PO (23:25)
[2018-09-15] MEDS ORDERED: ALBU8.5H8 INH (23:26)
--- NOTE | 2018-09-15 23:30 | NUR ---
Patient wanting her medical records so she can have them and make a copy for her MD.
[2018-09-16] MEDS ORDERED: albuterol 2.5 MG/3 ML nebule NEB PRN
--- NOTE | 2018-09-16 01:41 | NUR ---
Patient complaining of a hard spot under the skin on the right AC area where an old IV site was at the other hospital. Patient stated, "The IV hurt so i pulled it out and now its hard and tender under the skin.""
--- NOTE | 2018-09-16 03:26 | NUR ---
Patient ripped her IV out from her hand. Patient states, "It was uncomfortable."
[2018-09-16 06:00] VITALS: BP 102/55
--- NOTE | 2018-09-16 06:29 | NUR ---
Problems reprioritized. Patient report given, questions answered & plan of care reviewed with Mary TOMPKINS.
[2018-09-16] MEDS ORDERED: duloxetine 30mg CAPSULE.DR PO SCH (08:00)
[2018-09-16] MEDS ORDERED: aspirin 81mg tablet.DR PO SCH (08:00)
[2018-09-16] MEDS ORDERED: levoTHYROXINE 125mcg tablet PO SCH (08:00)
[2018-09-16] MEDS ORDERED: BRIVARACETAM 100 MG PO SCH (08:00)
[2018-09-16] MEDS ORDERED: topiramate 100mg tablet PO SCH (08:00)
[2018-09-16] MEDS: oxcarbazepine 150mg tablet PO SCH ×2 (08:08→14:47)
--- NOTE | 2018-09-16 08:26 | NUR ---
pt allowed me to search all belongings, I was unable to locate her home meds. Pt states that [facility] never gave it back to her. Also missing salon pas patches per pt. I called and spoke to pharm and they do not have meds stored down there.
[2018-09-16] MEDS ORDERED: budesonide 0.5mg/2ml UD nebule IH SCH (09:00)
--- NOTE | 2018-09-16 12:11 | NUR ---
Lauren could you pls call me? I need kanika br[facility] contact # they forgot my pt's home seizure meds in their pharm
--- NOTE | 2018-09-16 12:49 | NUR ---
spoke to [facility], they are looking for the home meds. Expecting a call back from them
--- NOTE | 2018-09-16 14:38 | NUR ---
spoke to pharmacy, they indeed have all of the pt's home meds, they will ship them to her home. Pt states that she has more of the supply of the meds at home.
--- NOTE | 2018-09-16 16:04 | NUR ---
PAGER ID: [phone] MESSAGE: Mary [id number] [place] [id number], she is anxious to leave, her ride home cannot drive after dark. Pls call me thank you
[2018-09-16] MEDS ORDERED: pramipexole 0.25mg tablet PO SCH (21:00)
== END 2018-09-16 16:30 | disposition home or self-care (01) | DRG 101 ==
LOC: ORTHO 4S 22:30
PROVIDERS: ADMIT Internal Medicine; ATTEND Hospitalist
DX: R56.9 Unspecified convulsions (principal); F41.9 Anxiety disorder, unspecified; R07.89 Other chest pain; Z79.899 Other long term (current) drug therapy; Z88.1 Allergy status to other antibiotic agents; Z88.8 Allergy status to other drugs, medicaments and biological substances
CPT/HCPCS: 87070; 94640; 94760; G0378; J7626

== ENCOUNTER 2021-12-01 12:33 | Outpatient (CLI) | payer MEDICAID ==
[~2021-12-01 12:33] MED LIST changes: +ACET-2119 PO; +ALBU8.5H17 INH; -GABA300C PO; -HEPA500017 SQ; -HYDR-4383 PO; +LIDO700A32 TOP; -LORA2VIA4 IV; -METO25TA6 PO; +ONDA4SOL2 IV; -TIZA4TAB11 PO
== END 2021-12-01 23:59 | disposition home or self-care (01) ==
LOC: VAS 12:33
PROVIDERS: ATTEND Family Medicine
DX: M79.604 Pain in right leg (principal); M79.605 Pain in left leg; Z86.718 Personal history of other venous thrombosis and embolism
CPT/HCPCS: 93970